=== PATIENT | female | born 1955 | race Caucasian/White ===

== ENCOUNTER 2017-04-18 21:36 | Inpatient (IN) ==
[2017-04-19] MEDS ORDERED: Naloxone 0.4 MG/ML INJ IVP PRN (02:17)
[2017-04-19] MEDS ORDERED: Acetaminophen 325 MG TABLET PO PRN (02:17)
[2017-04-19] MEDS ORDERED: Albuterol 2.5 MG/3 ML NEBULIZER IH PRN (02:23)
--- NOTE | 2017-04-19 02:37 | Internal Med History&Physical ---
Date of Encounter: 04/19/17 Time of Encounter: 01:30 Assessment and Plan (1) Multifocal pneumonia Current visit: Yes Status: Acute 1. Given the immunocompromised state with her CLL, I will place her on IV Vancomycin, Zosyn, and Levaquin. 2. Blood cultures drawn at [facility]. 3. Will treat with scheduled and PRN aerosols. 4. May need to add steroids for wheezing, but try above measures first as she has never been diagnosed with or treated for COPD. 5. Close monitoring on telemetry and pulse oximetry. 6. Oxygen and respiratory support as necessary per clinical course. (2) CLL (chronic lymphocytic leukemia) Current visit: Yes Status: Chronic 1. Discussed with Dr. Beach/Oncology on phone. 2. Oncology consult for assistance in management and further guidance. (3) DVT prophylaxis Current visit: Yes Status: Acute 1. Heparin SQ. Internal Medicine - H&P: HPI Chief complaint: pneumonia; CLL Admitted From: Hospital to Hospital Transfer Plans for Post Hospital Care: Home History of present illness: Ms. Faith is a 61 year old female who presents with a six-day history of cough , fevers, chills, appetite loss, fatigue, malaise, and body aches. She presented to the ER at [facility] with the above complaints and workup revealed patient to have what appeared to be a multifocal pneumonia. She also has CLL and her white blood cell count was around 152,000. Given her underlying blood dyscrasia and pneumonia, ER staff contacted me to transfer patient to our service. I spoke with Dr. Luna and then spoke with our oncologist director geothermal operations to coordinate care and management with oncology. I then accepted the patient in transfer. Upon my assessment of the patient, patient and her daughter reiterate the above history. She states the symptoms started roughly 1 week ago and have progressively worsened. She has become more dyspneic, fatigued, and coughing vigorously. She has had subjective fevers and chills as noted above. She denies any hemoptysis. She has had appetite loss and weight loss as well. She has had multiple ill contacts. Her flu testing was negative at [facility]. Regarding her CLL, she follows with [facility] and has not needed treatment thus far. Past Med Surg Social Fam HX - Past Medical History Attestation: Yes The following information was validated with the patient. Source: patient, old records reviewed, obtained from family Medical history: other (CLL) Psychiatric history: no psych history - Past Surgical History Surgical History: no surgical history - Social History Smoking Status: Current every day smoker Packs per day: 1 Smokeless Tobacco Status: No Alcohol use: occasionally Drug use: none Current living situation: Home, With Family Activity Level: Independent ambulation Recent Out of Country Travel Within the Last 8 Weeks: No - Family History Father Living Status: Hx Family Endocrine Disorder: Yes (DM type 2) Mother Age: 84 Family Member Ethnicity: Non- Living Status: Still Living Hx Family Cardiac Disorders: Yes (HTN) Hx Family Respiratory Disorders: Yes (COPD) Internal Medicine - H&P: Meds No Known Home Drugs 05/21/16 [History] 3 Allergy/AdvReac Type Severity Reaction Status Date / Time No Known Allergies Allergy Verified 11/26/16 09:49 - Constitutional Constitutional: chills, fever(s), night sweats, weakness, weight loss - EENT Eyes: no blurry vision, no change in vision Ears: no ear pain, no tinnitus Nose, mouth and throat: nasal congestion, no nasal discharge, no sinus pressure , no sore throat - Cardiovascular Cardiovascular ROS IM: dyspnea, dyspnea on exertion, no chest pain, no edema, no orthopnea, no palpitations, no paroxysmal nocturnal dyspnea, no syncope - Respiratory Respiratory: cough, dyspnea, dyspnea on exertion, wheezing, chest congestion, excessive phlegm production, change in phlegm color, no hemoptysis - Gastrointestinal Gastrointestinal: nausea, no abdominal pain, no diarrhea, no hematemesis, no hematochezia, no melena, no vomiting - Genitourinary Genitourinary: no dysuria, no flank pain, no hematuria - Musculoskeletal Musculoskeletal ROS IM: myalgias, no arthralgias, no back pain - Integumentary Integumentary IM: no rash, no jaundice - Neurological Neurological ROS: weakness, no dizziness, no focal weakness, no frequent falls, no headache(s), no numbness - Psychiatric Psychiatric: no anxiety, no depression - Endocrine Endocrine IM: no polydipsia, no polyuria - Hematologic/Lymphatic Hematologic/Lymphatic: easy bruising - Allergic/Immunologic Allergic/Immunologic: wheezing, no GI upset with certain foods - Constitutional Vitals: Temp Pulse Resp BP Pulse Ox 98.1 F 68 18 132/65 96 04/19/17 00:38 04/19/17 00:38 04/19/17 00:38 04/19/17 00:38 04/19/17 01:10 General appearance: Present: cooperative, mild distress, A&O X 3, pleasant, underweight, answers questions appropriately - Head Head exam: Present: normal inspection - Eye Eye exam: Present: EOMI, normal appearance, PERRL. Absent: scleral icterus Pupils: Present: normal accommodation - ENT ENT exam: Present: mucous membranes dry, normal exam - Neck Neck exam general surgery: Present: full ROM, supple. Absent: lymphadenopathy, tenderness, nuchal rigidity, thyromegaly - Respiratory Respiratory exam: Present: accessory muscle use, decreased breath sounds, prolonged expiratory phase, rales (both bases, mostly on right), respiratory distress (mild), rhonchi, wheezes, tachypnea. Absent: chest wall tenderness - Cardiovascular Cardiovascular exam: Present: distant heart sounds, RRR, +S1, +S2. Absent: diastolic murmur, JVD, systolic murmur - GI/Abdominal GI/Abdominal exam: Present: hepatomegaly, normal bowel sounds, soft, splenomegaly, no peritoneal signs. Absent: guarding, mass, rebound, tenderness - Extremities Exam Extremities exam: Present: full ROM, normal capillary refill, warm, radial pulses palpable and symmetrical. Absent: calf tenderness, joint swelling, pedal edema, tenderness - Back Exam Back exam: Absent: CVA tenderness (L), CVA tenderness (R) - Neurological Exam Neurological exam: Present: alert, CN II-XII intact, oriented X3, no focal deficits, strengths equal and symetr throughout - Psychiatric Psychiatric exam: Present: normal affect, normal mood - Skin Skin exam: Present: dry, warm. Absent: petechiae, rash Internal Med - H&P Results - Labs Labs: I reviewed her labs a [facility] and include the following: CBC 152.2 Hemoglobin 12.8 Hematocrit 40.6 Platelets 138 Sodium 135 Potassium 3.7 Chloride 99 Carbon dioxide 24 BUN18 Creatinine 0.[address] scan of the chest reveals patchy infiltrates in both right and left lungs as well as mediastinal adenopathy and splenomegaly
[2017-04-19] MEDS: Ipratropium/Albuterol Neb 3 ML IH SCH ×6 (03:44→23:02)
[2017-04-19] MEDS: *HR* HYDROcodone/Acet 5/325 mg TABLET PO PRN ×4 (03:54→22:30)
[2017-04-19] MEDS: 0.9 % Sodium Chloride w KCl 20 MEQ/1,000 ML MLS IVC SCH ×2 (03:54→14:13)
[2017-04-19 04:09] LABS: Hemoglobin 11.1 g/dL (11.5-15.4); Immature Granulocytes % 0.2 % (0-4); Segmented Neutrophils % 5.9 %
[2017-04-19 04:11] LABS: Hematocrit 36.5 % (35.3-44.9); Lymphocytes # 98.2 K/mcL (0.6-4.6); Lymphocytes % 92.8 %; Mean Corpuscular HGB Conc 30.4 g/dL (31.6-35.5); Mean Corpuscular Hemoglobin 28.4 pg (28.0-33.3); Mean Corpuscular Volume 93.4 fL (83.0-100.0); Mean Platelet Volume 10.5 fL (9.4-12.4); Monocytes # 1.2 K/mcL (0.0-1.3); Monocytes % 1.1 %; Neutrophils # 6.2 K/mcL (1.6-8.9); Nucleated Red Blood Cells 0.1 /100 WBC (0); Platelet Count 113 K/mcL (140-400); Red Blood Count 3.91 M/mcL (3.82-4.97); Red Cell Distribution Width 15.9 % (11.5-14.5)
[2017-04-19 04:15] LABS: Alanine Aminotransferase 51 Units/L (7-52); Albumin 3.8 g/dL (3.5-5.7); Albumin/Globulin Ratio 1.6 (1.1-2.2); Alkaline Phosphatase 95 Units/L (34-104); Aspartate Amino Transferase 39 Units/L (13-39); BUN/Creatinine Ratio 23 (6-26); Bilirubin,Total 0.7 mg/dL (0.3-1.0); Blood Urea Nitrogen 14 mg/dL (6-20); Calcium 8.3 mg/dL (8.6-10.3); Carbon Dioxide 27 mEq/L (23-29); Chloride 104 mEq/L (98-107); Globulin 2.4 g/dL (2.4-3.5); Glucose 101 mg/dL (70-105); Magnesium 2.2 mg/dL (1.6-2.6); Osmolality,Calculated 283 (280-300); Potassium 3.7 mEq/L (3.5-5.1); Sodium 136 mEq/L (136-145); Total Protein 6.2 g/dL (6.4-8.9); eGFR For African Americans > 60 (> 60); eGFR For Non-African Americans > 60 (> 60)
[2017-04-19 04:24] LABS: Prothrombin Time 11.1 Seconds (9.4-12.1)
[2017-04-19 04:27] LABS: Activated Partial Thrombo Time 26.6 Seconds (26.0-36.0)
[2017-04-19 04:52] LABS: Reactive Lymphocytes Present (Not Present)
[2017-04-19 04:54] LABS: Platelet Estimate Slight Decrease (Normal); Smudge Cells Present (Not Present)
[2017-04-19] MEDS: *HR* Heparin 5,000 UNIT/ML VIAL SQ SCH ×2 (06:36→16:42)
--- NOTE | 2017-04-19 08:07 | Internal Med Progress Note ---
Date of Encounter: 04/19/17 Time of Encounter: 08:07 - Subjective Interval history: HPI: (from H&P) Ms. Faith is a 61 year old female who presents with a six-day history of cough , fevers, chills, appetite loss, fatigue, malaise, and body aches. She presented to the ER at [facility] with the above complaints and workup revealed patient to have what appeared to be a multifocal pneumonia. She also has CLL and her white blood cell count was around 152,000. Multifocal pneumonia Concern for immunocompromised state /hypogammaglobulinemia Continue broad spectrum coverage (Vanc,Zosyn and Levaquin for atypicals) Blood cultures obtained Inf test (-) Bronchodilators IVFs CLL (chronic lymphocytic leukemia) Appreciate Med.Onc consult Fever, fatigue, night sweats as well as splenomegaly and the interval development of abdominal, pelvic and inguinal lymphadenopathy noted on imaging is concerning. Med Onc to evaluate for hypogammaglobulinemia To be done as OP when over acute illness. DVT prophylaxis Heparin SQ. - Constitutional Vitals: Temp Pulse Resp BP Pulse Ox 98.2 F 65 16 110/54 92 04/19/17 06:36 04/19/17 06:36 04/19/17 07:21 04/19/17 06:36 04/19/17 07:21 General appearance: Present: cooperative, mild distress, A&O X 3, pleasant, underweight, answers questions appropriately - Head Head exam: Present: atraumatic, normocephalic - Eye Eye exam: Present: PERRL, conjuntiva pink, sclera anicteric Pupils: Present: PERRL - Neck Neck exam general surgery: Present: supple, trachea midline. Absent: lymphadenopathy - Respiratory Respiratory exam: Present: CTAB. Absent: accessory muscle use, rales, rhonchi, wheezes - Cardiovascular Cardiovascular exam: Present: RRR, +S1, +S2. Absent: diastolic murmur, gallop, rubs, systolic murmur - GI/Abdominal GI/Abdominal exam: Present: normal bowel sounds, soft, no peritoneal signs. Absent: distended, tenderness - Extremities Exam Extremities exam: Present: warm, radial pulses palpable and symmetrical. Absent : calf tenderness, cyanotic, pedal edema - Neurological Exam Neurological exam: Present: CN II-XII intact, oriented X3, no focal deficits. Absent: pronater drift, facial droop, speech deficit - Psychiatric Psychiatric exam: Present: normal affect, normal mood - Skin Skin exam: Present: dry, intact Internal Medicine: Result - Labs CBC & Chem 7: 04/19/17 03:04 04/19/17 03:04 Labs: Short CBC 04/19/17 Range/Units 03:04 WBC 105.8 H* (4.3-11.1) K/mcL Hgb 11.1 L D (11.5-15.4) g/dL Hct 36.5 (35.3-44.9) % Plt Count 113 L (140-400) K/mcL Neutrophils # 6.2 (1.6-8.9) K/mcL BMP 04/19/17 03:04 Sodium 136 Potassium 3.7 Chloride 104 Carbon Dioxide 27 BUN 14 Creatinine 0.62 Glucose 101 Calcium 8.3 L Cardiac Enzymes 04/19/17 Range/Units 03:04 Troponin I < 0.03 (< 0.04) ng/mL Liver Function 04/19/17 Range/Units 03:04 Total Bilirubin 0.7 (0.3-1.0) mg/dL AST 39 (13-39) Units/L ALT 51 (7-52) Units/L Alkaline Phosphatase 95 (34-104) Units/L Albumin 3.8 (3.5-5.7) g/dL - ABG Interpretation ABG results: PT/INR, D-dimer PT 11.1 Seconds (9.4-12.1) 04/19/17 03:04 Consult Discharge Plan - Plan Referrals: NONE,PCP [Primary Care Provider] - Jahaira Singh, [employer] [Family Provider] -
[2017-04-19] MEDS: Piperacillin/Tazobactam 3.375 GM in 0.9 % Sodium Chloride Mini Bag 100 ML IVPB SCH ×2 (08:25→16:41)
[2017-04-19] MEDS ORDERED: Levofloxacin 750 MG/150 ML 750 MG/150 ML BAG IVPB SCH (09:00)
--- NOTE | 2017-04-19 12:00 | Oncology Inp Consult Note ---
Date of Encounter: 04/19/17 Time of Encounter: 12:00 Assessment and Plan (1) CLL (chronic lymphocytic leukemia) Status: Chronic Assessment and plan: Currently white blood cell count is at 105,000, hemoglobin 11.1, platelet count 113,000, lymphocyte count 98,000. Patient's current white blood cell and lymphocyte count is actually below her most recent baseline. In CLL lymphocytosis strictly alone and in the absence of other indications for treatment even if extreme (<200,000, greater than this is associated with increased risk of hyperviscosity) is not an indication for treatment if the patient has no other symptoms and adequate bone marrow function. However, she is reporting and exhibiting some other concerning symptoms which will need to be followed on an outpatient basis to help determine whether the need for treatment initiation is warranted or not. Patient reports fevers, malaise, and decreased appetite associated with most recent illness. She also reports since her follow-up she had similar symptoms in February 2017, she feels as though symptoms got better but never fully subsided. Sign of recurrent infections in patient with CLL is of need for continued monitoring. We will check immunoglobulin panel for hypogammaglobulinemia, this laboratory testing will be done on an outpatient basis once her symptoms of acute infection resolve. Patient also reports decreased appetite and weight loss over the past 3 months, she has lost about 15 pounds since her last follow-up with us in November 2016. She reports mild fatigue and mild night sweats. In addition to the above, her CT imaging obtained during current hospitalization does show splenomegaly and the interval development of abdominal , pelvic and inguinal lymphadenopathy. The above findings warrant continued discussion regarding need for continued monitoring vs. treatment initiation with Dr. Brantley, patients treating oncologist, which may be done on an outpatient basis once her acute illness resolves. I have arranged for a follow up with Dr. Brantley on April 29 at 8 am, she was given an appointment card today. The above plan was discussed in detail with patient and patients sister at bedside today. The plan was also discussed with Dr. Beach, [facility], [place] oncologist , who agrees with plan of care. Oncology will follow from a distance during remaining time of hospitalization and otherwise sign off at this time. Please feel free to contact with any further questions or concerns. - Data of Consult Patient: known to practice within the last 3 years Consult date: 03/09/18 Requesting Physician: Quinten Espinal Primary Care Provider: PCP NONE Family Provider: Jahaira Singh CNP - Consult Narrative Reason for consult: CLL History of present illness: Ms. Faith is a 61 year old female with oncologic history significant for chronic lymphocytic leukemia. To date she has not required treatment and has been on close follow-up management with regular laboratory monitoring. At her most recent clinic follow-up in November 2016 her white blood cell count count was around 156,000, lymphocyte count around 150, both have been stable for some time. Patient is a smoker and has no interest in quitting at this time. She is up-to-date on her EGD and colonoscopy screening. Most recent mammogram in December 2016 benign, category 2. She presented to [facility] emergency room on 04/18/2016 with complaints of malaise, cough, nausea and vomiting, decreased appetite, decreased oral intake, fevers and chills for about one week prior to her presentation. She denies SOB, chest pain, dizziness and visual changes. She tested negative for influenza. CTA revealed no evidence of a pulmonary embolus, mild patchy right greater than left tree-in-bud infiltrates, likely inflammatory/infectious and mild bilateral hilar and mediastinal adenopathy and suspected splenomegaly. CT of abdomen and pelvis again revealed splenomegaly and interval development of abdominal, pelvic , and inguinal lymphadenopathy. Past Med Surg Social Fam HX - Past Medical History Medical history: other (CLL) Psychiatric history: no psych history - Past Surgical History Surgical History: no surgical history - Social History Smoking Status: Current every day smoker Packs per day: 1 Smokeless Tobacco Status: No Alcohol use: occasionally Drug use: none - Family History Father Living Status: Hx Family Endocrine Disorder: Yes (DM type 2) Mother Age: 84 Family Member Ethnicity: Non- Living Status: Still Living Hx Family Cardiac Disorders: Yes (HTN) Hx Family Respiratory Disorders: Yes (COPD) Medications and Allergies No Known Home Drugs 05/21/16 [History] 3 Allergy/AdvReac Type Severity Reaction Status Date / Time No Known Allergies Allergy Verified 04/19/17 09:13 Constitutional: Present: as per HPI, anorexia, chills, fatigue, fever(s), malaise, weakness, weight loss. Absent: frequent falls Eyes: Absent: change in vision Nose, mouth and throat: Absent: dysphagia Cardiovascular: Absent: chest pain, irregular heart rhythm, palpitations Respiratory: Present: cough. Absent: dyspnea, hemoptysis Gastrointestinal: Present: as per HPI, cramping, nausea, vomiting. Absent: hematemesis, hematochezia Genitourinary: Absent: dysuria, hematuria Musculoskeletal: Absent: numbness, tingling Integumentary: Absent: wounds Neurological: Absent: focal weakness, headache(s) Hematologic/Lymphatic: Present: as per HPI Oncology - Exam - Constitutional Vitals: Temp Pulse Resp BP Pulse Ox 98.0 F 80 18 110/58 95 04/19/17 11:25 04/19/17 11:25 04/19/17 11:25 04/19/17 11:25 04/19/17 11:25 General appearance: cooperative, no acute distress, no febrile - Head Head exam: Present: atraumatic - ENT ENT exam: Present: mucous membranes moist - Respiratory Respiratory exam: Present: decreased breath sounds, CTAB. Absent: respiratory distress - Cardiovascular Cardiovascular exam: Present: RRR, +S1, +S2 - GI/Abdominal GI/Abdominal exam: Present: normal bowel sounds, soft. Absent: tenderness - Extremities Exam Extremities exam: Present: normal inspection. Absent: calf tenderness - Neurological Exam Neurological exam: Present: alert, oriented X3, no focal deficits, strengths equal and symetr throughout - Psychiatric Psychiatric exam: Present: normal affect, normal mood - Skin Skin exam: Present: normal color, warm Oncology - Results Labs: Short CBC 04/19/17 Range/Units 03:04 WBC 105.8 H* (4.3-11.1) K/mcL Hgb 11.1 L D (11.5-15.4) g/dL Hct 36.5 (35.3-44.9) % Plt Count 113 L (140-400) K/mcL Neutrophils # 6.2 (1.6-8.9) K/mcL BMP 04/19/17 03:04 Sodium 136 Potassium 3.7 Chloride 104 Carbon Dioxide 27 BUN 14 Creatinine 0.62 Glucose 101 Calcium 8.3 L Cardiac Enzymes 04/19/17 04/19/17 Range/Units 03:04 10:53 Troponin I < 0.03 < 0.03 (< 0.04) ng/mL Liver Function 04/19/17 Range/Units 03:04 Total Bilirubin 0.7 (0.3-1.0) mg/dL AST 39 (13-39) Units/L ALT 51 (7-52) Units/L Alkaline Phosphatase 95 (34-104) Units/L Albumin 3.8 (3.5-5.7) g/dL Consult Discharge Plan - Plan Referrals: Jahaira Singh, [employer] [Family Provider] - NONE,PCP [Primary Care Provider] -
[2017-04-19] MEDS: Levofloxacin 750 MG/150 ML 750 MG/150 ML BAG IVPB SCH (12:37)
[2017-04-20] MEDS: Piperacillin/Tazobactam 3.375 GM in 0.9 % Sodium Chloride Mini Bag 100 ML IVPB SCH ×3 (00:40→16:08)
[2017-04-20] MEDS: Ipratropium/Albuterol Neb 3 ML IH SCH ×6 (03:45→23:28)
[2017-04-20] MEDS: *HR* Heparin 5,000 UNIT/ML VIAL SQ SCH ×3 (05:17→15:48)
[2017-04-20] MEDS: *HR* HYDROcodone/Acet 5/325 mg TABLET PO PRN ×2 (05:18→16:08)
[2017-04-20 08:07] LABS: Basophils % 0.1 %
[2017-04-20 08:09] LABS: Hematocrit 31.7 % (35.3-44.9); Hemoglobin 9.7 g/dL (11.5-15.4); Immature Granulocytes % 0.2 % (0-4); Lymphocytes # 61.2 K/mcL (0.6-4.6); Lymphocytes % 90.6 %; Mean Corpuscular HGB Conc 30.6 g/dL (31.6-35.5); Mean Corpuscular Volume 94.6 fL (83.0-100.0); Mean Platelet Volume 10.5 fL (9.4-12.4); Monocytes % 1.1 %; Neutrophils # 5.4 K/mcL (1.6-8.9); Platelet Count 110 K/mcL (140-400); Red Blood Count 3.35 M/mcL (3.82-4.97); Red Cell Distribution Width 15.8 % (11.5-14.5)
[2017-04-20 08:14] LABS: Basophils # 0.1 K/mcL (0.0-0.2); Monocytes # 0.7 K/mcL (0.0-1.3)
[2017-04-20 08:35] LABS: BUN/Creatinine Ratio 11 (6-26); Blood Urea Nitrogen 6 mg/dL (6-20); Calcium 8.1 mg/dL (8.6-10.3); Carbon Dioxide 26 mEq/L (23-29); Chloride 108 mEq/L (98-107); Glucose 104 mg/dL (70-105); Osmolality,Calculated 284 (280-300); Potassium 4.3 mEq/L (3.5-5.1); Sodium 138 mEq/L (136-145); eGFR For African Americans > 60 (> 60); eGFR For Non-African Americans > 60 (> 60)
[2017-04-20 09:12] LABS: Smudge Cells Present (Not Present)
[2017-04-20 09:14] LABS: Platelet Estimate Slight Decrease (Normal)
[2017-04-20] MEDS: Levofloxacin 750 MG/150 ML 750 MG/150 ML BAG IVPB SCH (11:54)
[2017-04-20] MEDS: Nicotine 21 MG PATCH.TD24 TD SCH (11:55)
--- NOTE | 2017-04-20 12:42 | Internal Med Progress Note ---
Date of Encounter: 04/20/17 Time of Encounter: 12:31 - Subjective Interval history: HPI: (from H&P) Ms. Faith is a 61 year old female who presents with a six-day history of cough , fevers, chills, appetite loss, fatigue, malaise, and body aches. She presented to the ER at [place] with the above complaints and workup revealed patient to have what appeared to be a multifocal pneumonia. She also has CLL and her white blood cell count was around 152,000. Interval changes: Clinically improved and breathing more comfortably Still requiring supplemental O2 Multifocal pneumonia Concern for immunocompromised state /hypogammaglobulinemia Continue broad spectrum coverage (Vanc,Zosyn and Levaquin for atypicals) Blood cultures obtained Inf test (-) Bronchodilators IVFs CLL (chronic lymphocytic leukemia) Appreciate Med.Onc consult Fever, fatigue, night sweats as well as splenomegaly and the interval development of abdominal, pelvic and inguinal lymphadenopathy noted on imaging is concerning. Med Onc to evaluate for hypogammaglobulinemia To be done as OP when over acute illness. DVT prophylaxis Heparin SQ. - Constitutional Vitals: Temp Pulse Resp BP Pulse Ox 97.9 F 71 16 119/60 95 04/20/17 11:11 04/20/17 11:11 04/20/17 11:11 04/20/17 11:11 04/20/17 11:11 General appearance: Present: cooperative, A&O X 3, pleasant, no acute distress, underweight, answers questions appropriately - Head Head exam: Present: atraumatic, normocephalic - Eye Eye exam: Present: PERRL, conjuntiva pink, sclera anicteric Pupils: Present: PERRL - Neck Neck exam general surgery: Present: supple, trachea midline. Absent: lymphadenopathy - Respiratory Respiratory exam: Present: CTAB. Absent: accessory muscle use, rales, rhonchi, wheezes - Cardiovascular Cardiovascular exam: Present: RRR, +S1, +S2. Absent: diastolic murmur, gallop, rubs, systolic murmur - GI/Abdominal GI/Abdominal exam: Present: normal bowel sounds, soft, no peritoneal signs. Absent: distended, tenderness - Extremities Exam Extremities exam: Present: warm, radial pulses palpable and symmetrical. Absent : calf tenderness, cyanotic, pedal edema - Neurological Exam Neurological exam: Present: CN II-XII intact, oriented X3, no focal deficits. Absent: pronater drift, facial droop, speech deficit - Psychiatric Psychiatric exam: Present: normal affect, normal mood - Skin Skin exam: Present: dry, intact, warm Internal Medicine: Result - Labs CBC & Chem 7: 04/20/17 07:56 04/20/17 07:56 Labs: Short CBC 04/20/17 Range/Units 07:56 WBC 67.5 H* (4.3-11.1) K/mcL Hgb 9.7 L (11.5-15.4) g/dL Hct 31.7 L (35.3-44.9) % Plt Count 110 L (140-400) K/mcL Neutrophils # 5.4 (1.6-8.9) K/mcL BMP 04/20/17 07:56 Sodium 138 Potassium 4.3 Chloride 108 H Carbon Dioxide 26 BUN 6 Creatinine 0.57 L Glucose 104 Calcium 8.1 L Cardiac Enzymes 04/19/17 Range/Units 15:56 Troponin I < 0.03 (< 0.04) ng/mL - ABG Interpretation ABG results: PT/INR, D-dimer PT 11.1 Seconds (9.4-12.1) 04/19/17 03:04 Consult Discharge Plan - Plan Referrals: Jahaira Singh, [employer] [Family Provider] - NONE,PCP [Primary Care Provider] -
[2017-04-21] MEDS: Piperacillin/Tazobactam 3.375 GM in 0.9 % Sodium Chloride Mini Bag 100 ML IVPB SCH ×2 (00:06→12:03)
[2017-04-21] MEDS: Ipratropium/Albuterol Neb 3 ML IH SCH ×3 (04:26→11:39)
[2017-04-21] MEDS: *HR* Heparin 5,000 UNIT/ML VIAL SQ SCH (04:55)
[2017-04-21 06:09] LABS: Hemoglobin 9.5 g/dL (11.5-15.4); Mean Platelet Volume 10.8 fL (9.4-12.4); Monocytes % 0.8 %; Red Cell Distribution Width 15.9 % (11.5-14.5)
[2017-04-21 06:16] LABS: Immature Granulocytes % 0.2 % (0-4); Lymphocytes # 62.7 K/mcL (0.6-4.6); Lymphocytes % 93.6 %; Mean Corpuscular HGB Conc 30.6 g/dL (31.6-35.5); Mean Corpuscular Hemoglobin 28.9 pg (28.0-33.3); Mean Corpuscular Volume 94.2 fL (83.0-100.0); Neutrophils # 3.6 K/mcL (1.6-8.9); Platelet Count 136 K/mcL (140-400); Red Blood Count 3.29 M/mcL (3.82-4.97); Segmented Neutrophils % 5.4 %
[2017-04-21 06:21] LABS: Monocytes # 0.5 K/mcL (0.0-1.3)
[2017-04-21 06:36] LABS: Platelet Estimate Normal (Normal); Smudge Cells Present (Not Present)
[2017-04-21 06:51] LABS: BUN/Creatinine Ratio 11 (6-26); Blood Urea Nitrogen 7 mg/dL (6-20); Calcium 8.6 mg/dL (8.6-10.3); Carbon Dioxide 25 mEq/L (23-29); Chloride 109 mEq/L (98-107); Glucose 106 mg/dL (70-105); Osmolality,Calculated 286 (280-300); Potassium 3.5 mEq/L (3.5-5.1); Sodium 139 mEq/L (136-145); eGFR For African Americans > 60 (> 60); eGFR For Non-African Americans > 60 (> 60)
[2017-04-21 06:54] VITALS: BP 139/70
[2017-04-21] MEDS: *HR* HYDROcodone/Acet 5/325 mg TABLET PO PRN (07:16)
[2017-04-21] MEDS: Nicotine 21 MG PATCH.TD24 TD SCH (10:06)
[2017-04-21] MEDS ORDERED: Benzonatate 100 MG CAPSULE PO PRN (11:59)
[2017-04-21] MEDS: Levofloxacin 750 MG/150 ML 750 MG/150 ML BAG IVPB SCH (12:03)
--- NOTE | 2017-04-21 12:06 | Discharge Summary ---
Orders not resulted at time of discharge: Pending orders 04/19/17 06:00 ECG 12 lead ECG [ECG] AM 0600 04/22/17 09:00 Vancomycin,Trough Timed Date of Encounter: 04/21/17 Time of Encounter: 11:53 Hospital course: Ms. Faith is a 61 year old woman who presents with a six-day history of cough , fevers, chills, appetite loss, fatigue, malaise, and body aches. She presented to the ER at [facility] with the above complaints and workup revealed patient to have what appeared to be a multifocal pneumonia. She also has CLL and her white blood cell count was around 152,000. Given her underlying blood dyscrasia and pneumonia, ER staff contacted me to transfer patient to our service. Her flu testing was negative at [facility]. She was treated with broad spectrum antibiotics and clinically improved very rapidly. She was afebrile with a normal WBC and comfortably breathing without supplemental O2 at the time of discharge. 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 She was discharged to home and will follow up with oncology and continue Levaquin for 7 more days. Discharge discussed with: patient, family, nurse Time spent discussing smoking cessation with patient: more than 10 minutes - Time Spent with Patient Total time spent providing and/or coordinating discharge services: Greater than 30 minutes - Discharge Medications Prescriptions: Benzonatate [Tessalon] 200 mg PO TID PRN 7 Days #21 capsule PRN Reason: Cough GuaiFENesin ER [Mucinex] 600 mg PO BID 7 Days #14 tbbp.12hr levoFLOXacin [Levaquin] 750 mg PO DAILY 7 Days #7 tablet Nicotine Patch [Nicoderm] 21 mg TD DAILY 30 Days #30 patch.[email or web address] Home Medications: Benzonatate [Tessalon] 200 mg PO TID PRN 7 Days #21 capsule 04/21/17 [Rx] GuaiFENesin ER [Mucinex] 600 mg PO BID 7 Days #14 tbbp.12hr 04/21/17 [Rx] Nicotine Patch [Nicoderm] 21 mg TD DAILY 30 Days #30 patch.td24 04/21/17 [Rx] levoFLOXacin [Levaquin] 750 mg PO DAILY 7 Days #7 tablet 04/21/17 [Rx] Allergies/Adverse Reactions: 3 Allergy/AdvReac Type Severity Reaction Status Date / Time No Known Allergies Allergy Verified 04/19/17 09:13 Date of admission: 04/19/17 02:17 Primary care physician: PCP NONE Consults: 04/19/17 01:09 Consult to Nutrition [CONS] Routine Comment: Consulting Provider: NUTRITION Reason for Dietary Consult: MST Score 04/19/17 02:21 Consult to Physician [CONS] Routine Consulting Provider: [place] Reason for Consult: CLL patient with pneumonia; WBC [id number] Call Completed: Yes - Constitutional Vitals: Temp Pulse Resp BP Pulse Ox 98.0 F 90 16 139/70 95 04/21/17 06:51 04/21/17 06:51 04/21/17 11:41 04/21/17 06:51 04/21/17 11:41 General appearance: Present: cooperative, A&O X 3, pleasant, no acute distress, underweight, answers questions appropriately - Head Head exam: Present: atraumatic, normocephalic - Eye Eye exam: Present: PERRL, conjuntiva pink, sclera anicteric Pupils: Present: PERRL - Neck Neck exam general surgery: Present: supple, trachea midline. Absent: lymphadenopathy - Respiratory Respiratory exam: Present: CTAB. Absent: accessory muscle use, rales, rhonchi, wheezes - Cardiovascular Cardiovascular exam: Present: RRR, +S1, +S2. Absent: diastolic murmur, gallop, rubs, systolic murmur - GI/Abdominal GI/Abdominal exam: Present: normal bowel sounds, soft, no peritoneal signs. Absent: distended, tenderness - Extremities Exam Extremities exam: Present: warm, radial pulses palpable and symmetrical. Absent : calf tenderness, cyanotic, pedal edema - Neurological Exam Neurological exam: Present: CN II-XII intact, oriented X3, no focal deficits. Absent: pronater drift, facial droop, speech deficit - Psychiatric Psychiatric exam: Present: normal affect, normal mood - Skin Skin exam: Present: dry, intact - Patient Status Disposition: Hospice - Home - Discharge Instructions Instructions: Benzonatate (By mouth), Guaifenesin (By mouth), Nicotine ( Absorbed through the skin), Levofloxacin (By mouth), How to Stop Smoking (DC), How to Stop Smoking (GEN), Cigarette Smoking and Your Health (GEN), Community- acquired Pneumonia (DC), Community-acquired Pneumonia (GEN), Pneumonia (DC), Pneumonia (GEN), Cigarette Smoking and Your Health, Travel Freight And Passenger Agent (GEN), Pneumonia, Travel Freight And Passenger Agent (GEN), How to Stop Smoking, Travel Freight And Passenger Agent (GEN) Follow Up With: Jahaira Singh CNP [Family Provider] - Angeles Medina MD [Partnered Physician] - 04/29/17 8:00 am NONE,PCP [Primary Care Provider] -
[2017-04-21] MEDS ORDERED: FLUARIX QUAD 2017-18 36MOS UP/PF 0.5 ML SYRINGE IM ONE (12:07)
[2017-04-21] MEDS ORDERED: Aminoglycoside Consult 1 EACH MC ONE (16:20)
[2017-04-22] MEDS ORDERED: levoFLOXacin 750 MG TABLET PO SCH (09:00)
== END 2017-04-21 16:21 | disposition hospice, home (50) | DRG 139 ==
LOC: 2NENU
PROVIDERS: ADMIT Pediatrics; ATTEND Internal Medicine